=== PATIENT | male | born 1955 | race Caucasian/White ===

== ENCOUNTER 2018-07-14 12:14 | Inpatient (IN) | payer OTHER ==
[~2018-07-14] VITALS: Ht 198.1 cm; Wt 103.8 kg
[2018-07-14] MEDS ORDERED: MORPHINE SULFATE 4 MG/ML SYR/VIAL IV PRN (12:30)
[2018-07-14] MEDS ORDERED: SODIUM CHLORIDE 0.9% 3,000 ML IV ONE (12:30)
[2018-07-14] MEDS ORDERED: ACETAMINOPHEN 325 MG TAB PO PRN (12:30)
[2018-07-14] MEDS ORDERED: VANCOMYCIN PER PHARMACY 1,000 MG IV SCH (12:30)
[2018-07-14] MEDS ORDERED: PIPERACILLIN-TAZOB 3.375GM 100 ML IV SCH (14:00)
[2018-07-14 14:04] LABS: Alanine Aminotransferase 12 U/L (16-61); Albumin 2.9 g/dL (3.4-5.0); Anion Gap 8 (5-15); Aspartate Aminotransferase 6 U/L (15-37); BUN/Creatinine Ratio 12.1; Blood Urea Nitrogen 11 mg/dL (7-18); Calcium 8.8 mg/dL (8.5-10.1); Carbon Dioxide 23 mmol/L (21-32); Chloride 106 mmol/L (98-107); GFR African American 109 mL/min; GFR Non-African American 90 mL/min; Glucose 277 mg/dL (74-106); Sodium 137 mmol/L (136-145)
[2018-07-14 14:09] LABS: Alkaline Phosphatase 115 U/L (45-117); Bilirubin, Total 0.8 mg/dL (0.2-1.0); Total Protein 7.7 g/dL (6.4-8.2)
[2018-07-14 14:35] LABS: Partial Thromboplastin Time 34.3 sec (23.78-33.04); Prothrombin Time 10.7 sec (9.27-12.13)
[2018-07-14 15:10] LABS: Hematocrit 41.6 % (41.0-53.0); Hemoglobin 14.2 g/dL (13.5-17.5); Mean Corpuscular Hemoglobin 35.8 pg (28.0-32.0); Mean Corpuscular Volume 105.3 fL (80.0-100.0); Platelet Count (auto) 198 10^3/uL (140-450); Red Blood Cells 3.95 10^6/uL (4.5-5.90); Red Cell Distribution Width 13.3 % (11.8-14.3); White Blood Cell 14.5 10^3/uL (4.4-10.8)
[2018-07-14 15:37] LABS: Band Neutrophils % (manual) 0; Basophils % (manual) 0 (0.0-2.0); Blast Cells 0; Eosinophils % (manual) 0 (0-7); Metamyelocytes % 0; Myelocytes % 0; Promyelocytes % 0; Reactive Lymphocytes 0
[2018-07-14 15:47] LABS: Amphetamine Screen, Urine NEGATIVE (NEGATIVE); Barbiturate Scree,Urine NEGATIVE (NEGATIVE); Benzodiazephine Screen, Urine NEGATIVE (NEGATIVE); Cannabinoid Screen, Urine NEGATIVE (NEGATIVE); Cocaine Screen, Urine NEGATIVE (NEGATIVE); Opiate Scree,Urine NEGATIVE (NEGATIVE); Phencyclidine Screen, Urine NEGATIVE (NEGATIVE)
[2018-07-14 16:15] LABS: Urine Amorphous Crystal MOD /hpf (None Seen); Urine Bacteria FEW /hpf (None Seen); Urine Blood Negative /uL (Negative); Urine Mucus FEW (None Seen); Urine Specific Gravity 1.025 (1.001-1.035); Urine WBC 3 /hpf (0 - 3)
[2018-07-14] MEDS ORDERED: IPRATROPIUM BROM 0.5 MG/2.5ML INH SOL NEB ONE (16:15)
[2018-07-14] MEDS ORDERED: ALBUTEROL SULF 2.5 MG/0.5ML(0.5%) NEB SOLN NEB ONE (16:15)
[2018-07-14 16:58] LABS: Fibrinogen 672.7 mg/dL (177-375)
[2018-07-14] MEDS ORDERED: NICOTINE 21MG/24 HR TOPICAL PATCH TD ONE (17:15)
[2018-07-14] MEDS ORDERED: ACETAMINOPHEN 500 MG TAB PO PRN (17:15)
[2018-07-14] MEDS ORDERED: DEXTROSE (50%) 50ML SYRG IV PRN ×2 (17:15)
[2018-07-14] MEDS ORDERED: NITROGLYCERIN 0.4 MG SL TAB SL PRN (17:15)
[2018-07-14] MEDS ORDERED: ONDANSETRON HCL 4 MG/2 ML VIAL IV PRN (17:15)
[2018-07-14] MEDS ORDERED: MORPHINE SULF INJ 2 MG/ML SYRINGE 1ML IV PRN (17:15)
[2018-07-14] MEDS ORDERED: VANCOMYCIN PER PHARMACY 0 MG IV SCH (17:15)
[2018-07-14] MEDS ORDERED: HYDROcodone-ACET 5/325MG TAB PO PRN (17:15)
[2018-07-14 17:31] LABS: Lymphocytes % (manual) 3 (10.0-50.0); Monocytes % (manual) 3 (0-12)
[2018-07-14] MEDS: VANCOMYCIN 1GM/250ML 250 ML IV SCH (17:36)
[2018-07-14] MEDS: SODIUM CHLORIDE 0.9% 1,000 ML IV SCH ×2 (18:00→21:39)
[2018-07-14] MEDS: INSULIN NPH Isophane (HUMAN) 1unit/0.01ml Susp(100units/ml) SC SCH (19:00)
[2018-07-14] MEDS: Glucerna Carbsteady SHAKE Vanilla 8oz PO SCH (19:15)
[2018-07-14] MEDS: PIPERACILLIN-TAZOB 3.375GM 100 ML IV SCH (20:00)
[2018-07-14] MEDS: ACCU-CHEK COMFORT CURVE STRIP VI SCH (22:00)
[2018-07-14] MEDS: InsuLIN REG 1unit/0.01ml Soln (100units/ml) SC SCH (22:00)
[2018-07-14] MEDS ORDERED: InsuLIN REG 1unit/0.01ml Soln (100units/ml) SC SCH (22:00)
[2018-07-14] MEDS: DOCUSATE SOD 100 MG CAP PO SCH (22:00)
[2018-07-14] MEDS ORDERED: ACCU-CHEK COMFORT CURVE STRIP VI SCH (22:00)
[2018-07-15] MEDS: VANCOMYCIN 1GM/250ML 250 ML IV SCH ×3 (01:00→16:45)
[2018-07-15] MEDS: PIPERACILLIN-TAZOB 3.375GM 100 ML IV SCH ×4 (02:00→20:08)
[2018-07-15] MEDS: SODIUM CHLORIDE 0.9% 1,000 ML IV SCH ×3 (06:11→19:58)
[2018-07-15] MEDS: InsuLIN REG 1unit/0.01ml Soln (100units/ml) SC SCH ×4 (07:00→21:15)
[2018-07-15] MEDS: INSULIN NPH Isophane (HUMAN) 1unit/0.01ml Susp(100units/ml) SC SCH ×2 (07:00→18:06)
[2018-07-15] MEDS: ACCU-CHEK COMFORT CURVE STRIP VI SCH ×4 (07:00→21:16)
[2018-07-15 07:26] LABS: Basophils # (auto) 0 uL; Eosinophils # (auto) 0 uL; Eosinophils % (auto) 0.3 % (0.0-7.0); Monocytes # (auto) 0.6 uL; Potassium 4.2 mmol/L (3.5-5.1); Red Cell Distribution Width 13.1 % (11.8-14.3)
[2018-07-15 07:34] LABS: Basophils % (auto) 0.3 % (0.0-2.0); Lymphocytes # (auto) 0.7 uL; Mean Corpuscular Hemoglobin 36.3 pg (28.0-32.0); Mean Corpuscular Hgb Conc. 34.2 g/dL (32.0-36.0); Mean Corpuscular Volume 106.3 fL (80.0-100.0); Monocytes % (auto) 6.9 % (0.0-12.0); Neutrophils % (auto) 83.5 % (37.0-80.0); Platelet Count (auto) 169 10^3/uL (140-450); White Blood Cell 8.3 10^3/uL (4.4-10.8)
[2018-07-15 07:37] LABS: Albumin 2.5 g/dL (3.4-5.0); BUN/Creatinine Ratio 13.2; Bilirubin, Total 0.9 mg/dL (0.2-1.0); Calcium 9.2 mg/dL (8.5-10.1); Total Protein 6.7 g/dL (6.4-8.2)
[2018-07-15] MEDS: Glucerna Carbsteady SHAKE Vanilla 8oz PO SCH ×2 (07:39→18:01)
[2018-07-15] MEDS: MULTIPLE VITAMIN TAB PO SCH (09:30)
[2018-07-15] MEDS: QUEtiapine FUMARATE 25 MG TAB PO SCH (09:30)
[2018-07-15] MEDS: DOCUSATE SOD 100 MG CAP PO SCH ×2 (09:30→21:20)
[2018-07-15] MEDS: PANTOPRAZOLE 40 MG/10 ML VIAL IV SCH (09:30)
[2018-07-15] MEDS: NICOTINE 21MG/24 HR TOPICAL PATCH TD SCH (09:30)
[2018-07-15] MEDS: VENLAFAXINE HCL 37.5mg XR cap PO SCH (10:05)
--- NOTE | 2018-07-15 11:14 | NUR ---
WOUND CARE NOTE: Wound care in to see patient per wound care request regarding "Left Diabetic Foot Wound" ER nurse took photograph of patient's wound upon admission for reference. Patient is 62 years old male with admitting diagnosis of Severe Sepsis. Patient is resting in hospital bed in ER bed#10. He's awake,alert and fully oriented. He's in no stated pain at this time. Patient is able to turn and reposition self. His current Tiburcio score is 15. Patient has well healed R BKA stump. Noted his L heel has 6x6.5cm open full thickness ulceration with no measurable depth.Wound bed is 70% black eschar, 30% dusky red and pale pink at wound edges, gomez wound is yellow with hyperkeratotic skin, minimal serous drainage noted, no odor noted. Patient reported that he has had the L heel wound for two months. He states that he's under the care of "[facility]" for his L heel wound. He continued further that he goes to wound clinic every week and his does the wound dressing everyday. Cleansed patient's L heel wound with NS, patted dry with gauze. Took specimen for wound culture and sent to lab for processing per MD order. Applied NS moistened gauze dressing, wrapped with Kerlix and secured with tape. Patient tolerated well. Patient to be seen by podiatry consult. Will defer all wound care dressing recommendation/order to warehouse worker. Patient denies any other wound. RECOMMENDATION:Follow warehouse worker dressing change order, Dietary consult due to presence of wound,redistribute pressure points with pillows, elevate affected extremity on pillows, continue monitoring by wound care while patient is hospitalized. Addendum: 07/15/18 at 1302 by Monica Pearce RN Amended: Links added.
[2018-07-15] MEDS: DAKINS QUARTER STR 0.125% (NaHypochlorite) 473 ML TOPICAL SOL TOP SCH (12:58)
[2018-07-16] MEDS: VANCOMYCIN 1GM/250ML 250 ML IV SCH ×3 (00:30→17:16)
[2018-07-16] MEDS: PIPERACILLIN-TAZOB 3.375GM 100 ML IV SCH ×4 (02:14→20:19)
[2018-07-16] MEDS: SODIUM CHLORIDE 0.9% 1,000 ML IV SCH ×3 (02:40→16:03)
[2018-07-16 05:41] LABS: Basophils # (auto) 0 uL; Basophils % (auto) 0.2 % (0.0-2.0); Eosinophils # (auto) 0.1 uL; Eosinophils % (auto) 1.2 % (0.0-7.0); Hemoglobin 11.3 g/dL (13.5-17.5); Lymphocytes # (auto) 0.8 uL; Lymphocytes % (auto) 14.6 % (10.0-50.0); Mean Corpuscular Hemoglobin 36.2 pg (28.0-32.0); Mean Corpuscular Hgb Conc. 34.3 g/dL (32.0-36.0); Mean Corpuscular Volume 105.4 fL (80.0-100.0); Monocytes # (auto) 0.4 uL; Monocytes % (auto) 7.8 % (0.0-12.0); Neutrophils % (auto) 76.2 % (37.0-80.0); Nucleated Red Blood Cells % 0.1 %; Platelet Count (auto) 150 10^3/uL (140-450); Red Blood Cells 3.13 10^6/uL (4.5-5.90); Red Cell Distribution Width 13.2 % (11.8-14.3); White Blood Cell 5.3 10^3/uL (4.4-10.8)
[2018-07-16 06:01] LABS: Partial Thromboplastin Time 37.6 sec (23.78-33.04); Prothrombin Time 10.7 sec (9.27-12.13)
[2018-07-16 06:06] LABS: Calcium 8.8 mg/dL (8.5-10.1); Magnesium 2.1 mg/dL (1.6-2.6); Potassium 3.3 mmol/L (3.5-5.1)
[2018-07-16] MEDS: InsuLIN REG 1unit/0.01ml Soln (100units/ml) SC SCH ×4 (07:00→22:25)
[2018-07-16] MEDS: INSULIN NPH Isophane (HUMAN) 1unit/0.01ml Susp(100units/ml) SC SCH ×2 (07:00→19:43)
[2018-07-16] MEDS: ACCU-CHEK COMFORT CURVE STRIP VI SCH ×4 (07:23→22:25)
[2018-07-16] MEDS: Glucerna Carbsteady SHAKE Vanilla 8oz PO SCH ×2 (08:36→19:05)
[2018-07-16] MEDS: DOCUSATE SOD 100 MG CAP PO SCH ×2 (10:00→22:00)
[2018-07-16] MEDS: VENLAFAXINE HCL 37.5mg XR cap PO SCH (10:26)
[2018-07-16] MEDS: NICOTINE 21MG/24 HR TOPICAL PATCH TD SCH (10:26)
[2018-07-16] MEDS: MULTIPLE VITAMIN TAB PO SCH (10:26)
[2018-07-16] MEDS: PANTOPRAZOLE 40 MG/10 ML VIAL IV SCH (10:26)
[2018-07-16] MEDS: QUEtiapine FUMARATE 25 MG TAB PO SCH (10:26)
[2018-07-16] MEDS: DAKINS QUARTER STR 0.125% (NaHypochlorite) 473 ML TOPICAL SOL TOP SCH (10:45)
[2018-07-16] MEDS: GABAPENTIN 300 MG CAP PO SCH ×2 (14:05→22:25)
--- NOTE | 2018-07-16 14:32 | NUR ---
NUTRITION CONSULT/ASSESSMENT NOTES Please refer to link notes of nutrition screen form filed under the intervention section of the plan of care for further details. Est. Needs: 2150 kcal to 2700 kcal (20-25 kcal/kgBW), 109 gms to 131 gms pro (1.0-1.2 gms/kgBW). Will continue to monitor pertinent labs and reassess nutrient need prn Thank you for this consult. Addendum: 07/16/18 at [address] Amended: Links added.
[2018-07-16] MEDS ORDERED: POTASSIUM CHL 20 Meq TABLET PO ONE (17:00)
[2018-07-16] MEDS ORDERED: LIDOCAINE 1% (LOCAL ANESTH.) PF 5ml SDV ID ONE (17:15)
--- NOTE | 2018-07-16 17:17 | NUR ---
PICC line placement Patient/Patient significant other educated on need for PICC line placement. All risks and benefits explained and all questions and concerns addressed prior to procedure. Noted past medical history and allergies with no contraindications. INR and Plt counts within acceptable range. 4 fr PICC line inserted via right brachial vein using [employer]'s Site Rite US and Tip Location System. Sterile technique with maximum barrier precautions utilized. Blood return obtained from the lumen and flushed easily with NS using proper technique. PICC secured with Stat-lock; biodisc and occlusive dressing applied. Stat portable chest x-ray obtained for PICC tip placement. *Baseline Arm Circumference 26cm. Internal length 37cm. External length 5cm. PICC lot # [id number]. Note: Accessed easily, but when attempted to be advanced all the way pressure kept pushing the PICC back and no blood return was noted. It was pulled back until blood return was present.
--- NOTE | 2018-07-16 17:39 | NUR ---
PICC LINE Radiologist called to say that the PICC line was malpositioned in the neck. PICC line was pulled out at this time and will be re-attempted tomorrow.
--- NOTE | 2018-07-16 18:20 | NUR ---
Telemetry admit from ER RAMIRO MOTLEY admitted to Telemetry unit after SBAR received. Patient oriented to Shefali Lerma, primary RN, unit, room, bed, and unit policies regarding patient care and visiting hours. Patient now on continuous telemetry monitoring, tele box # 2 and telemetry reading on arrival to unit is sinus rhythm at 84. Patient weighed by bedscale and encouraged to call if they need something. All questions and concerns addressed, patient verbalized understanding. RT foot dressing clean and dry, rizvi draining to gravity. Pt denies pain at this time, will continue to monitor pt.
[2018-07-16] MEDS ORDERED: ASCO500T11 PO (19:12)
[2018-07-16] MEDS ORDERED: MULTCAP45 PO (19:12)
[2018-07-16] MEDS ORDERED: DICL500C76 PO (19:12)
[2018-07-16] MEDS ORDERED: ALBU0.084 NEB (19:12)
[2018-07-16] MEDS ORDERED: INSREG3 SC (19:12)
[2018-07-16] MEDS ORDERED: GABA-339 PO (19:12)
[2018-07-16] MEDS ORDERED: VENL75CA78 PO (19:12)
[2018-07-16] MEDS ORDERED: LISI10TA6 PO (19:12)
[2018-07-16] MEDS ORDERED: METH-824 PO (19:12)
[2018-07-16] MEDS ORDERED: INSUINJ2 SC (19:12)
[2018-07-16] MEDS ORDERED: QUET50TA PO (19:12)
[2018-07-16 22:00] VITALS: BP 117/58
[2018-07-16] MEDS: SODIUM CHLOR 0.9% PF (SALINE LOCK) 10ML VIAL/SYR IV SCH (22:00)
[2018-07-17] MEDS: SODIUM CHLORIDE 0.9% 1,000 ML IV SCH ×3 (00:49→13:54)
[2018-07-17] MEDS: VANCOMYCIN 1GM/250ML 250 ML IV SCH ×3 (00:49→17:33)
[2018-07-17] MEDS: PIPERACILLIN-TAZOB 3.375GM 100 ML IV SCH ×2 (02:30→08:21)
[2018-07-17 05:02] VITALS: BP 103/60
[2018-07-17] MEDS: GABAPENTIN 300 MG CAP PO SCH ×3 (06:32→21:31)
[2018-07-17 06:39] LABS: Calcium 8.6 mg/dL (8.5-10.1); Potassium 3.7 mmol/L (3.5-5.1)
[2018-07-17 06:41] LABS: BUN/Creatinine Ratio 8.1
[2018-07-17] MEDS: ACCU-CHEK COMFORT CURVE STRIP VI SCH ×4 (06:41→21:31)
[2018-07-17] MEDS: INSULIN NPH Isophane (HUMAN) 1unit/0.01ml Susp(100units/ml) SC SCH ×2 (06:41→17:35)
[2018-07-17] MEDS: InsuLIN REG 1unit/0.01ml Soln (100units/ml) SC SCH ×4 (06:42→21:36)
[2018-07-17] MEDS: Glucerna Carbsteady SHAKE Vanilla 8oz PO SCH ×2 (08:00→18:00)
[2018-07-17 09:00] VITALS: BP 125/58
[2018-07-17] MEDS: PANTOPRAZOLE 40 MG/10 ML VIAL IV SCH (09:28)
[2018-07-17] MEDS: MULTIPLE VITAMIN TAB PO SCH (09:29)
[2018-07-17] MEDS: DOCUSATE SOD 100 MG CAP PO SCH ×2 (09:29→21:33)
[2018-07-17] MEDS: QUEtiapine FUMARATE 25 MG TAB PO SCH (09:29)
[2018-07-17] MEDS: VENLAFAXINE HCL 37.5mg XR cap PO SCH (09:30)
[2018-07-17] MEDS: NICOTINE 21MG/24 HR TOPICAL PATCH TD SCH (09:31)
[2018-07-17] MEDS: SODIUM CHLOR 0.9% PF (SALINE LOCK) 10ML VIAL/SYR IV SCH ×3 (10:00→21:30)
[2018-07-17] MEDS: DAKINS QUARTER STR 0.125% (NaHypochlorite) 473 ML TOPICAL SOL TOP SCH (11:39)
--- NOTE | 2018-07-17 11:45 | NUR ---
PT SEEN BY DR. CASILLAS HE SAID HE WILL DISCHARGE THE PT HOME TOMORROW TO CONTINUE IV ANTIBIOTIC ONCE PICC LINE IS PLACED.
[2018-07-17 13:00] VITALS: BP 101/60
--- NOTE | 2018-07-17 14:28 | NUR ---
Mamta at [facility] (ph # [phone]) working on getting home abx ordered. I informed Mamta pt will probably go home tomorrow
--- NOTE | 2018-07-17 15:40 | NUR ---
PICC line placement Patient educated on need for PICC line placement. All risks and benefits explained and all questions and concerns addressed prior to procedure. Noted past medical history and allergies with no contraindications. INR and Plt counts within acceptable range. 4 fr PICC line inserted via Right Brachial vein using [employer]'s Site Rite US and Tip Location System. Sterile technique with maximum barrier precautions utilized. Blood return obtained from the single lumen and flushed easily with NS using proper technique. PICC secured with Stat-lock; biodisc and occlusive dressing applied. Stat portable chest x-ray obtained for PICC tip placement. *Baseline Arm Circumference 33 cm. *Internal Length 38 cm. *External length 2 cm. *PICC lot #[id number]. Note: PICC Line inserted by Velia Morfin RN. This RN assisting with documentation. Original internal lnegth of 44 cm cut short, no blood return with original length. EBL 20 mls. Tolerated well during procedure.
[2018-07-17] MEDS ORDERED: LIDOCAINE 1% (LOCAL ANESTH.) PF 5ml SDV ID ONE (15:45)
--- NOTE | 2018-07-17 16:05 | NUR ---
PT TRANSFERRED TO ROOM 239 PT STATED [facility] PERSON CALLED HIM STATING THAT HE CAME BACK POSITIVE FOR MRSA WOUND, CHARGE NURSE KASIE INFORMED AND SAID TO TRANSFER THE PT TO ROOM 239 ONCE CLEANED.
[2018-07-17 16:53] VITALS: BP 108/60
--- NOTE | 2018-07-17 17:37 | NUR ---
PICC LINE PER RADIOLOGY REPORT PICC LINE IS COURSING UP THE RIGHT SUPRACLAVICULAR NECK, RECOMMEND READJUSTMENT. CONSULTED WITH PICC LINE RN KEYSHA, STATES BEST PRACTICE IS TO REMOVE PICC LINE AT THIS TIME. STATES SHE WILL ATTEMPT PLACEMENT TOMORROW. PRIMARY RN NOTIFIED.
--- NOTE | 2018-07-17 19:35 | NUR ---
OPENING SHIFT NOTE RECEIVED REPORT FROM DAYSHIFT RN. PATIENT RESTING COMFORTABLY IN BED WITH EYES CLOSED. PATIENT A/O X4. NO S/S OF DISTRESS OR SOB. CONTACT ISOLATION PRECAUTIONS IN PLACE. UPDATED PATIENT ON POC, VERBALIZED UNDERSTANDING. BED LOCKED IN LOW POSITION, CALL LIGHT WITHIN REACH. WILL CONTINUE TO MONITOR PATIENT Q1HR AND PRN.
[2018-07-17 22:00] VITALS: BP 119/65
[2018-07-18] MEDS: SODIUM CHLORIDE 0.9% 1,000 ML IV SCH ×2 (01:12→14:25)
[2018-07-18] MEDS: VANCOMYCIN 1GM/250ML 250 ML IV SCH ×2 (01:12→09:41)
[2018-07-18 05:00] VITALS: BP 117/58
[2018-07-18] MEDS: GABAPENTIN 300 MG CAP PO SCH ×2 (06:20→14:00)
[2018-07-18] MEDS: ACCU-CHEK COMFORT CURVE STRIP VI SCH ×2 (06:21→11:39)
[2018-07-18] MEDS: INSULIN NPH Isophane (HUMAN) 1unit/0.01ml Susp(100units/ml) SC SCH (06:24)
[2018-07-18] MEDS: InsuLIN REG 1unit/0.01ml Soln (100units/ml) SC SCH ×2 (06:24→11:40)
[2018-07-18] MEDS: Glucerna Carbsteady SHAKE Vanilla 8oz PO SCH (08:00)
[2018-07-18 09:00] VITALS: BP 110/64
[2018-07-18] MEDS ORDERED: cefTRIAXone 1GM/50ML D5W 50 ML IV SCH (09:00)
--- NOTE | 2018-07-18 09:25 | NUR ---
PT SEEN BY DR. CASILLAS PER DR. CASILLAS PT CAN GO HOME ONCE PICC LINE INSERTION IS DONE.
[2018-07-18] MEDS: PANTOPRAZOLE 40 MG/10 ML VIAL IV SCH (09:41)
[2018-07-18] MEDS: MULTIPLE VITAMIN TAB PO SCH (09:41)
[2018-07-18] MEDS: QUEtiapine FUMARATE 25 MG TAB PO SCH (09:41)
[2018-07-18] MEDS: VENLAFAXINE HCL 37.5mg XR cap PO SCH (09:41)
[2018-07-18] MEDS: SODIUM CHLOR 0.9% PF (SALINE LOCK) 10ML VIAL/SYR IV SCH ×2 (09:42→09:43)
[2018-07-18] MEDS: NICOTINE 21MG/24 HR TOPICAL PATCH TD SCH (09:42)
[2018-07-18] MEDS: DAKINS QUARTER STR 0.125% (NaHypochlorite) 473 ML TOPICAL SOL TOP SCH (09:42)
[2018-07-18] MEDS: DOCUSATE SOD 100 MG CAP PO SCH (10:00)
[2018-07-18] MEDS ORDERED: ERTAPENEM SOD INJ 1 GM in SODIUM CHL 0.9% 50 ML IV SCH (10:00)
--- NOTE | 2018-07-18 10:20 | NUR ---
SPOKE WITH LONNY QUALITY IMPROVEMENT MANAGER, MADE AWARE PT HAS A DISCHARGE ORDER WAITING FOR PICC LINE NURSE TO INSERT THE PICC LINE. PER LONNY SHE WILL CALL [facility] AND WILL CALL ME BACK FOR UPDATE.
[2018-07-18 10:24] VITALS: BP 110/64
--- NOTE | 2018-07-18 11:14 | NUR ---
PICC line placement Patient educated on need for PICC line placement. All risks and benefits explained and all questions and concerns addressed prior to procedure. Noted past medical history and allergies with no contraindications. INR and Plt counts within acceptable range. 4 fr PICC line inserted via left basilic vein using [employer]'s Site Rite US and Tip Location System. Sterile technique with maximum barrier precautions utilized. Blood return obtained from single lumen and flushed easily with NS using proper technique. PICC secured with Stat-lock; biodisc and occlusive dressing applied. Stat portable chest x-ray obtained for PICC tip placement. *Baseline Arm Circumference 30 cm. *Internal Length 54 cm. *External Length 0 cm. *PICC lot #[id number].
--- NOTE | 2018-07-18 12:21 | NUR ---
Okay to use PICC line X-ray completed. Primary RN notified.
--- NOTE | 2018-07-18 12:51 | NUR ---
SPOKE WITH LONNY MIRROR MACHINE FEEDER MADE AWARE PICC LINE WAS INSERTED AND OKAY TO USE, PER LONNY SHE WILL CALL ME BACK IF PT IS OKAY TO GO.
--- NOTE | 2018-07-18 12:58 | NUR ---
[facility] ARRANGED FOR PT TO RECEIVE 1ST HOME DOSE TOMORROW. [facility] (PH [phone]) WILL DELIVER MEDS BETWEEN THE HRS OF 1800 2000 HRS, PER LAUREN, PT AWARE OF NEED TO BE HOME AT THAT TIME FOR MED DELIVERY. LAUREN ALSO VERIFIED PT'S PH #. [facility] ([phone]) AND [facility] ([phone]) NOTIFIED OF PT'S D/C
[2018-07-18 13:00] VITALS: BP 106/52
--- NOTE | 2018-07-18 13:45 | NUR ---
WOUND PHOTO TAKEN ON LEFT FOOT, WOUND DRESSING DONE.
--- NOTE | 2018-07-18 14:11 | NUR ---
DR. CASILLAS NOTIFIED PT CAME BACK POSITIVE FOR MRSA IN THE WOUND.
--- NOTE | 2018-07-18 14:51 | NUR ---
LONNY CABRERA MADE AWARE PT CAME BACK POSITIVE FOR MRSA IN THE WOUND AND STILL WAITING FOR DR. CASILLAS'S CALL BACK.
--- NOTE | 2018-07-18 14:56 | NUR ---
PAGED DR. CASILLAS FOLLOW UP PAGED FOR DR. CASILLAS, PT CAME BACK POSITIVE FOR MRSA IN THE WOUND, WAITING FOR CALL BACK.
--- NOTE | 2018-07-18 14:57 | NUR ---
WAITING FOR DR CASILLAS TO CALL STEPHANIE BACK CONCERNING ABX COVERAGE FOR + MRSA CULTURE
--- NOTE | 2018-07-18 15:30 | NUR ---
SPOKE WITH DR. CASILLAS PER DR. CASILLAS DOXYCYCLINE WILL COVER THE MRSA IN THE WOUND, HE SAID PT CAN GO HOME.
--- NOTE | 2018-07-18 15:32 | NUR ---
PT OKAY TO GO HOME WITH PO ABX PRESCRIPTION FOR + MRSA TX. STEPHANIE INFORMED THAT [facility] DOES NOT TRANSPORT HOME (THEY WILL BUT PT MAY HAVE A HIGH DEDUCTIBLE) AND THAT PT WILL HAVE TO ARRANGE OWN TRANSPORTATION PER [facility].
--- NOTE | 2018-07-18 16:00 | NUR ---
Discharge instructions given as ordered. Encourage to follow up with DR. TRISTAN BEAL IN 1 WEEK, [facility] WILL CALL PT FOR HIS PPOINTMENT. All questions and concerns addressed. Patient verbalized understanding. Medication reconciliation form completed and copy given to patient. IV removed with catheter intact, pressure dressing applied. Patient taken to vehicle via wheelchair with all personal belongings, accompanied by staff and family member. No distress noted at time of departure.
--- NOTE | 2018-07-18 16:02 | NUR ---
TRANSPORT: PER STEPH[facility]IE, HAS ARRANGED FOR TRANSPORT AND [facility] IS WAITING FOR PT AT HOSPITAL AT THIS TIME
== END 2018-07-18 16:00 | disposition home or self-care (01) | DRG 871 ==
LOC: EDBD 12:14 → ER 12:14 → OVERFLOW 17:04 → TELE-EAST 07-16 18:00
PROVIDERS: ADMIT Nurse Practitioner Acute Care; ATTEND Internal Medicine Geriatric Medicine
PROC: 02HV33Z Insertion of Infusion Device into Superior Vena Cava, Percutaneous Approach (ICD-10-PCS; principal; 2018-07-17)
DX: A41.9 Sepsis, unspecified organism (principal); J18.9 Pneumonia, unspecified organism; C34.90 Malignant neoplasm of unspecified part of unspecified bronchus or lung; E44.0 Moderate protein-calorie malnutrition; N39.0 Urinary tract infection, site not specified; L97.429 Non-pressure chronic ulcer of left heel and midfoot with unspecified severity; M86.8X7 Other osteomyelitis, ankle and foot; R65.20 Severe sepsis without septic shock; E11.65 Type 2 diabetes mellitus with hyperglycemia; I10 Essential (primary) hypertension; E11.51 Type 2 diabetes mellitus with diabetic peripheral angiopathy without gangrene; G89.29 Other chronic pain; M54.5 Low back pain; F32.9 Major depressive disorder, single episode, unspecified; E11.621 Type 2 diabetes mellitus with foot ulcer; L97.529 Non-pressure chronic ulcer of other part of left foot with unspecified severity; E11.69 Type 2 diabetes mellitus with other specified complication; E11.42 Type 2 diabetes mellitus with diabetic polyneuropathy; Z68.26 Body mass index [BMI] 26.0-26.9, adult; Z88.8 Allergy status to other drugs, medicaments and biological substances; F17.210 Nicotine dependence, cigarettes, uncomplicated; Z79.4 Long term (current) use of insulin; Z89.511 Acquired absence of right leg below knee; Z92.3 Personal history of irradiation; Z79.899 Other long term (current) drug therapy
CPT/HCPCS: 36415; 36569; 36600; 70450; 71045; 73620; 73700; 73721; 80048; 80053; 80061; 80202; 80307; 81001; 82553; 82805; 82962; 83036; 83605; 83735; 83880; 84443; 84484; 85007; 85025; 85027; 85379; 85384; 85610; 85652; 85730; 86141; 86850; 86900; 86901; 87040; 87077; 87081; 87086; 87088; 87186; 87205; 87804; 93005; 93925; 94640; 96365; 96366; C9113; G0378; J0696; J1335; J1815; J2405; J2543

== ENCOUNTER 2018-12-13 19:09 | Inpatient (IN) | payer OTHER ==
[~2018-12-13] VITALS: Ht 198.1 cm; Wt 105.7 kg
[~2018-12-13 19:09] MED LIST: ALBU0.084 NEB; ASCO500T11 PO; DICL500C76 PO; GABA-339 PO; INSREG3 SC; INSUINJ2 SC; LISI10TA6 PO; METH-824 PO; MULTCAP45 PO; QUET50TA PO; VENL75CA78 PO
[2018-12-13] MEDS ORDERED: cefTRIAXone SOD 1,000 MG VL IM ONE (20:30)
[2018-12-13] MEDS ORDERED: SODIUM CHLORIDE 0.9% 1,000 ML IV ONE (20:30)
[2018-12-13] MEDS ORDERED: LEVOFLOXACIN 750MG 150 ML IV ONE (20:30)
[2018-12-13 21:26] LABS: Basophils # (auto) 0 uL; Eosinophils # (auto) 0 uL; Lymphocytes # (auto) 0.5 uL; Mean Corpuscular Hgb Conc. 34.1 g/dL (32.0-36.0)
[2018-12-13 21:29] LABS: Basophils % (auto) 0.3 % (0.0-2.0); Eosinophils % (auto) 0.5 % (0.0-7.0); Hematocrit 36.2 % (41.0-53.0); Hemoglobin 12.3 g/dL (13.5-17.5); Lymphocytes % (auto) 5.9 % (10.0-50.0); Mean Corpuscular Volume 102.6 fL (80.0-100.0); Monocytes # (auto) 0.6 uL; Monocytes % (auto) 7.1 % (0.0-12.0); Neutrophils # (auto) 6.7 uL; Neutrophils % (auto) 86.2 % (37.0-80.0); Platelet Count (auto) 217 10^3/uL (140-450); Red Blood Cells 3.53 10^6/uL (4.5-5.90); White Blood Cell 7.8 10^3/uL (4.4-10.8)
[2018-12-13 21:51] LABS: Alanine Aminotransferase 15 U/L (16-61); Albumin 2.4 g/dL (3.4-5.0); Anion Gap 8 (5-15); Aspartate Aminotransferase 13 U/L (15-37); BUN/Creatinine Ratio 16.3; Blood Urea Nitrogen 13 mg/dL (7-18); Calcium 9.1 mg/dL (8.5-10.1); Carbon Dioxide 27 mmol/L (21-32); Chloride 103 mmol/L (98-107); GFR African American 126 mL/min; GFR Non-African American 104 mL/min; Glucose 121 mg/dL (74-106); Potassium 3.6 mmol/L (3.5-5.1); Sodium 138 mmol/L (136-145)
[2018-12-13 21:55] LABS: Alkaline Phosphatase 80 U/L (45-117); Bilirubin, Total 0.3 mg/dL (0.2-1.0)
[2018-12-14] MEDS ORDERED: cefTRIAXone 1GM/50ML D5W 50 ML IV ONE
[2018-12-14] MEDS ORDERED: ACETAMINOPHEN 500 MG TAB PO PRN (02:45)
[2018-12-14] MEDS ORDERED: ONDANSETRON HCL 4 MG/2 ML VIAL IV PRN (02:45)
[2018-12-14] MEDS ORDERED: TEMAZEPAM 15 MG CAP PO PRN (02:45)
[2018-12-14] MEDS ORDERED: ACETAMINOPHEN 325 MG TAB PO PRN (02:45)
[2018-12-14] MEDS ORDERED: DEXTROSE (50%) 50ML SYRG IV PRN (05:00)
[2018-12-14 06:01] LABS: Basophils # (auto) 0.1 uL; Basophils % (auto) 0.9 % (0.0-2.0); Eosinophils # (auto) 0.1 uL; Eosinophils % (auto) 0.9 % (0.0-7.0); Hematocrit 36.3 % (41.0-53.0); Hemoglobin 12.3 g/dL (13.5-17.5); Lymphocytes # (auto) 0.8 uL; Lymphocytes % (auto) 11.6 % (10.0-50.0); Mean Corpuscular Hemoglobin 34.9 pg (28.0-32.0); Mean Corpuscular Hgb Conc. 33.9 g/dL (32.0-36.0); Mean Corpuscular Volume 102.9 fL (80.0-100.0); Monocytes # (auto) 0.6 uL; Monocytes % (auto) 8.1 % (0.0-12.0); Neutrophils # (auto) 5.7 uL; Neutrophils % (auto) 78.5 % (37.0-80.0); Platelet Count (auto) 229 10^3/uL (140-450); Red Blood Cells 3.53 10^6/uL (4.5-5.90); Red Cell Distribution Width 13.1 % (11.8-14.3); White Blood Cell 7.3 10^3/uL (4.4-10.8)
[2018-12-14] MEDS: ALBUTEROL SULF 2.5 MG/0.5ML(0.5%) NEB SOLN NEB SCH ×3 (06:11→19:04)
[2018-12-14] MEDS: IPRATROPIUM BROM 0.5 MG/2.5ML INH SOL NEB SCH ×3 (06:12→19:04)
[2018-12-14 06:16] VITALS: BP 120/64
[2018-12-14 06:20] LABS: Calcium 9.2 mg/dL (8.5-10.1); Potassium 3.6 mmol/L (3.5-5.1)
[2018-12-14 06:23] LABS: BUN/Creatinine Ratio 14.9
[2018-12-14] MEDS: InsuLIN REG 1unit/0.01ml Soln (100units/ml) SC SCH ×4 (08:06→22:16)
[2018-12-14] MEDS: ACCU-CHEK COMFORT CURVE STRIP VI SCH ×4 (08:06→22:17)
[2018-12-14] MEDS: LISINOPRIL 10 MG TAB PO SCH (08:16)
[2018-12-14] MEDS: VENLAFAXINE HCL 37.5MG TABLET PO SCH ×2 (08:16→22:16)
[2018-12-14] MEDS: QUEtiapine FUMARATE 25 MG TAB PO SCH ×2 (08:16→22:16)
[2018-12-14] MEDS: PANTOPRAZOLE 40 MG TAB PO SCH (08:16)
[2018-12-14] MEDS: guaiFENesin-DM 100/10mg/5ml SYR PO PRN ×2 (08:31→22:19)
--- NOTE | 2018-12-14 10:00 | NUR ---
PT ADMITTED TO FLOOR VIA GURNEY AND STAFF FROM [facility]. PT REPORTS NO PAIN AT THIS TIME. VITALS: 98.4, 129/78, HR 107, RR 22, 02 95. PT REPORTS HE HAS A MORPHINE PUMP IN ABDOMEN FOR BACK PAIN. PT HAS A RIGHT BKA AND A PRESSURE ULCER ON LEFT HEEL. PHOTOS TAKEN AND NEW OPTIFOAM APPLIED TO FOOT. URINE SENT FOR URINALYSIS. PT ORIENTED TO UNIT AND CALL LIGHT. BED IN LOWEST LOCKED POSITION, SIDE RAILS UP X 2, WILL CONTINUE TO MONITOR.
[2018-12-14] MEDS ORDERED: INSUINJ2 SC ×2 (10:13)
[2018-12-14] MEDS ORDERED: QUET50TA PO (10:13)
[2018-12-14] MEDS ORDERED: INSREG3 SC (10:13)
[2018-12-14] MEDS ORDERED: CIPR-173 PO (10:13)
[2018-12-14] MEDS ORDERED: [UNRECOGNIZED DRUG - CODE] IV (10:13)
[2018-12-14] MEDS ORDERED: MORP60TA25 IL (10:15)
[2018-12-14 10:29] LABS: Urine Bacteria FEW /hpf (None Seen); Urine Blood 1+ /uL (Negative); Urine Mucus FEW (None Seen); Urine Specific Gravity 1.022 (1.001-1.035); Urine WBC 238 /hpf (0 - 3); Urine WBC Clumps PRESENT /hpf (None Seen)
[2018-12-14 11:00] VITALS: BP 129/78
--- NOTE | 2018-12-14 13:00 | NUR ---
WOUND CARE NOTE: IN TO SEE PATIENT AT THIS TIME PER WOUND CARE CONSULT REQUEST. PATIENT RECENTLY ADMITTED TO [facility] WITH DIAGNOSIS OF RIGHT PLEURAL EFFUSION. CURRENT MIQUEL SCORE IS 16. PATIENT CAN SELF TURN/REPOSITION SELF. HE IS DIABETIC, NOTED TO HAVE WOUND TO LEFT HEEL UPON ADMIT. WOUND PHOTO TAKEN AT THAT TIME BY BEDSIDE NURSE FOR REFERENCE, WOUND CONSULT ORDERED. PATIENT IS NOTED TO HAVE A 5 X 3 CM OPEN DFU/ VS UNSTAGEABLE PRESSURE ULCER TO THE LEFT HEEL. WOUND IS NECROTIC, WITH ESCHAR AND SLOUGH NOTED IN WOUND BED. HE HAS BEEN RECEIVING WOUND CARE FOR APPROXIMATELY 6 MONTHS ON THIS WOUND AT HIS DOCTOR'S OFFICE AT [facility]. PATIENT STATES THAT WOUND STARTED WITH A BLISTER. PATIENT IS NOTED TO HAVE A RIGHT BKA STUMP WITH WELL HEALED SURGICAL SCAR. CULTURED LEFT HEEL WOUND PER MD ORDER AT THIS TIME, SENT OFF TO LAB FOR PROCESSING. APPLIED THERAHONEY, OPTIFOAM DRESSING, WRAPPING FOOT/HEEL WITH KERLIX, SECURING WITH TAPE/STOCKINETTE. SKIN/WOUND CARE PLAN IMPLEMENTED. RECOMMEND: EOD/PRN DRESSING CHANGE TO WOUND ON LEFT HEEL, ELEVATION OF HEEL UP ONTO PILLOW FOR OFFLOADING, SKIN/WOUND CARE PLAN, DIETARY CONSULT, CONTINUED MONITORING BY WOUND CARE TEAM. PATIENT WILL GO BACK TO [facility] FOR WOUND CARE POST DISCHARGE. Addendum: 12/14/18 at 1823 by Yulia Orellana RN Amended: Links added.
[2018-12-14 17:24] VITALS: BP 17/62
--- NOTE | 2018-12-14 19:30 | NUR ---
Opening Shift Note Assumed care of patient, awake and alert. Right BKA. Able to turn himself. Has aggressive cough. Unable to get anything up at this time. Offered robitussin. He stated" maybe later." IV to L FA patent. No S/S of distress/SOB or pain. Instructed on POC and to call for assist PRN, will continue to monitor for changes Q1hr and PRN.
[2018-12-14] MEDS ORDERED: LEVOFLOXACIN 500MG 100 ML IV SCH (21:00)
[2018-12-14] MEDS: LEVOFLOXACIN 750MG 150 ML IV SCH (21:07)
[2018-12-14] MEDS: HYDROcodone-ACET 5/325MG TAB PO PRN (21:08)
[2018-12-14 22:00] VITALS: BP 105/41
--- NOTE | 2018-12-14 22:00 | NUR ---
Complaining of right shoulder pain. States " the doctor says its related to the lungs. Has a pain pump implanted in his abdomen but states it was turned down earlier in the year, thinks it might be out soon. Offered norco per orders. Continues to have aggressive cough. Will medicate per orders.
[2018-12-15] MEDS: IPRATROPIUM BROM 0.5 MG/2.5ML INH SOL NEB SCH ×4 (01:09→19:08)
[2018-12-15] MEDS: ALBUTEROL SULF 2.5 MG/0.5ML(0.5%) NEB SOLN NEB SCH ×4 (01:09→19:08)
[2018-12-15 05:00] VITALS: BP 114/65
[2018-12-15] MEDS: InsuLIN REG 1unit/0.01ml Soln (100units/ml) SC SCH ×4 (06:13→22:31)
[2018-12-15] MEDS: PANTOPRAZOLE 40 MG TAB PO SCH ×2 (06:14→07:23)
[2018-12-15] MEDS: ACCU-CHEK COMFORT CURVE STRIP VI SCH ×4 (06:14→22:29)
[2018-12-15] MEDS: HYDROcodone-ACET 5/325MG TAB PO PRN ×3 (06:18→22:28)
--- NOTE | 2018-12-15 07:00 | NUR ---
Patient coughing so much was unable to take his protonix or norco. Wasting both. Endorsed care to [facility]. Offered sadieitussin and he declined at this time.
--- NOTE | 2018-12-15 07:56 | NUR ---
PT RESTING IN BED AND REPORTS 8/10 PAIN IN SHOULDERS. 75 MLS YELLOW ORANGE CLOUDY URINE NOTED IN [place]. SIDE RAILS UP X 2, BED IN LOWEST LOCKED POSITION, CALL LIGHT IN REACH, WILL GIVE PAIN MEDICATION AND CONTINUE TO MONITOR.
[2018-12-15 09:00] VITALS: BP 127/65
[2018-12-15] MEDS ORDERED: cefTRIAXone 1GM/50ML D5W 50 ML IV SCH (09:00)
[2018-12-15 09:13] LABS: Basophils # (auto) 0 uL; Basophils % (auto) 0.5 % (0.0-2.0); Eosinophils # (auto) 0 uL; Eosinophils % (auto) 0.6 % (0.0-7.0); Monocytes # (auto) 0.5 uL; Neutrophils # (auto) 5.5 uL
[2018-12-15 09:16] LABS: Hematocrit 36.4 % (41.0-53.0); Hemoglobin 12.4 g/dL (13.5-17.5); Lymphocytes # (auto) 0.7 uL; Lymphocytes % (auto) 9.9 % (10.0-50.0); Mean Corpuscular Hemoglobin 35.1 pg (28.0-32.0); Mean Corpuscular Hgb Conc. 34.1 g/dL (32.0-36.0); Mean Corpuscular Volume 102.9 fL (80.0-100.0); Monocytes % (auto) 7.4 % (0.0-12.0); Neutrophils % (auto) 81.6 % (37.0-80.0); Platelet Count (auto) 249 10^3/uL (140-450); Red Blood Cells 3.53 10^6/uL (4.5-5.90); Red Cell Distribution Width 13.1 % (11.8-14.3); White Blood Cell 6.8 10^3/uL (4.4-10.8)
[2018-12-15 09:27] LABS: INR 1.08 (0.9-1.15); Partial Thromboplastin Time 33.6 sec (23.64-32.05)
[2018-12-15 09:33] LABS: BUN/Creatinine Ratio 13.6; Calcium 9.1 mg/dL (8.5-10.1); Magnesium 2.5 mg/dL (1.6-2.6); Potassium 3.8 mmol/L (3.5-5.1)
--- NOTE | 2018-12-15 10:27 | NUR ---
CALLED RADIOLOGY. RADIOLOGY CONFIRMS PATIENT WILL HAVE THORACENTESIS AND REQUESTS CONSENT FORMS TO BE SIGNED AND SUPPLIES FOR PROCEDURE AT BEDSIDE. CALLED TO NOTIFY HER PATIENT IS TO HAVE THORACENTESIS TODAY. PT PREVIOUSLY REPORTED PT IS A LITTLE CONFUSED AT TIMES. ASKED TO COME AND SIGN CONSENTS. REPORTS SHE WILL BE HERE IN 2 HRS. PT NOTIFIED OF PROCEDURE, CHEST ULTRASOUND ALREADY DONE, WILL CONTINUE TO MONITOR.
[2018-12-15] MEDS: LISINOPRIL 10 MG TAB PO SCH (10:53)
[2018-12-15] MEDS: VENLAFAXINE HCL 37.5MG TABLET PO SCH ×2 (10:54→22:28)
[2018-12-15] MEDS: QUEtiapine FUMARATE 25 MG TAB PO SCH ×2 (10:55→22:28)
--- NOTE | 2018-12-15 10:55 | NUR ---
RADIOLOGY NURSE REPORTS THEY HAD PATIENT SIGN CONSENT, AND ARE GOING TO DO PROCEDURE SOON. CALLED AND NOTIFIED PT , AWARE AND REPORTS SHE IS ON HER WAY, WILL CONTINUE TO MONITOR.
--- NOTE | 2018-12-15 11:21 | NUR ---
PT REQUESTS NICOTINE PATCH FOR PATIENT AND AIR MATRES, WILL ASK CHARGE FOR AIR MATRES. CALLED DR CASILLAS TO REQUEST NICOTINE PATCH. ALSO NOTIFIED OF WOUND CULTURE RESULTS AND ASKED TO DC ESTEBAN PER PHARMACY. LEFT MESSAGE, AWAITING CALL BACK.
--- NOTE | 2018-12-15 11:30 | NUR ---
CALLED CHARGE NURSE, SHE REPORTS TO PUT IN WOUND CONSULT FOR AIR MATRES. CONSULT PUT IN.
--- NOTE | 2018-12-15 12:38 | NUR ---
RADIOLOGY JUST FINISHING THORACENTESIS. RADIOLOGY NURSE REPORTS THEY REMOVED 800 CC OF FLUID. POST THORACENTESIS VITALS ARE: BP 104/60, HR 106, 02 98, RR 20. WILL CONTINUE TO MONITOR.
--- NOTE | 2018-12-15 12:40 | NUR ---
Right thoracentesis done at bedside with baseline vs 92/31-107-99% SAO2. O2 on at 2L per NC. Thoracentesis needle inserted per after local anesthetic injected. 800ml straw colored liquid obtained and sent to lab. 1225 vs 93/52-107-97% SAP2. 1230 vs 78/44-108-98% SAO2 - procedure terminated as flow had also stopped simultaneously. Catheter removed, Vaseline gauze applied to site et covered with Tegaderm without bleeding noted. Placed patient in supine position. vs recheck 104/60-107-98%SAO2. at bedside - informed of above. Reported events to patient's nurse Al[facility].
--- NOTE | 2018-12-15 12:41 | NUR ---
DR CASILLAS SAW PATIENT, MD REPORTS HE WILL ODER NICOTINE PATCH. MD REPORTS HE WILL LOOK AT WOUND CULTURE AND PHARMACY NOTE ON ROCEPHIN.
[2018-12-15] MEDS ORDERED: VANCOMYCIN 1GM/250ML 250 ML IV ONE (12:45)
[2018-12-15] MEDS ORDERED: NICOTINE 7MG/24HR TOPICAL PATCH TD ONE (12:45)
[2018-12-15 13:00] VITALS: BP 117/67
--- NOTE | 2018-12-15 14:55 | NUR ---
Nutrition Consult/Assessment Notes please see attached link for complete assessment Est. Needs BW 106 k- 2650 kcal (23-25 kcal/kg), 106-116 g protein (1.0-1.1 g/kg r/t wounds). Will continue to monitor pertinent labs and reassess nutrient need prn. Addendum: 12/15/18 at [address] Amended: Links added.
[2018-12-15 17:00] VITALS: BP 99/45
[2018-12-15] MEDS: LEVOFLOXACIN 750MG 150 ML IV SCH (19:59)
[2018-12-15 21:47] VITALS: BP 109/60
--- NOTE | 2018-12-15 22:40 | NUR ---
OPTIFOAM PLACED: Optifoam placed on patients sacrum due to blanchable redness. No s/s of distress noted. Patient tolerated well.
--- NOTE | 2018-12-15 23:09 | NUR ---
Opening Shift Note Assumed care of patient, awake and alert. No S/S of distress/SOB noted. Instructed on POC and to call for assist PRN. Bed is in lowest locked position with bed rails up x2 and call light is within reach of the patient. Addendum: 12/16/18 at 0022 by Luz Maria Cornell RN RN Wrong time: 1938 Dressing to right back is dry and intact
[2018-12-16] MEDS: ALBUTEROL SULF 2.5 MG/0.5ML(0.5%) NEB SOLN NEB SCH ×3 (00:36→11:29)
[2018-12-16] MEDS: IPRATROPIUM BROM 0.5 MG/2.5ML INH SOL NEB SCH ×3 (00:36→11:29)
[2018-12-16 05:04] VITALS: BP 104/57
--- NOTE | 2018-12-16 05:44 | NUR ---
WOUND CARE: WOUND CARE DONE ORDERED. PATIENT TOLERATED WELL. NO S/S OF DISTRESS SOB NOTED.
[2018-12-16] MEDS: HYDROcodone-ACET 5/325MG TAB PO PRN ×2 (06:08→10:08)
[2018-12-16] MEDS: ACCU-CHEK COMFORT CURVE STRIP VI SCH ×2 (06:09→11:33)
[2018-12-16] MEDS: InsuLIN REG 1unit/0.01ml Soln (100units/ml) SC SCH ×2 (06:11→11:30)
[2018-12-16 06:31] LABS: Basophils # (auto) 0 uL; Basophils % (auto) 0.4 % (0.0-2.0); Eosinophils # (auto) 0.1 uL; Eosinophils % (auto) 1.2 % (0.0-7.0); Hematocrit 33.9 % (41.0-53.0); Hemoglobin 11.8 g/dL (13.5-17.5); Lymphocytes # (auto) 0.6 uL; Mean Corpuscular Hemoglobin 35.7 pg (28.0-32.0); Mean Corpuscular Hgb Conc. 34.7 g/dL (32.0-36.0); Monocytes # (auto) 0.5 uL; Monocytes % (auto) 8.8 % (0.0-12.0); Neutrophils # (auto) 4.6 uL; Neutrophils % (auto) 78.6 % (37.0-80.0); Platelet Count (auto) 226 10^3/uL (140-450); Red Blood Cells 3.29 10^6/uL (4.5-5.90); Red Cell Distribution Width 13.1 % (11.8-14.3); White Blood Cell 5.8 10^3/uL (4.4-10.8)
[2018-12-16 06:42] LABS: BUN/Creatinine Ratio 13.9; Calcium 8.8 mg/dL (8.5-10.1); Magnesium 2.4 mg/dL (1.6-2.6); Potassium 3.7 mmol/L (3.5-5.1)
--- NOTE | 2018-12-16 06:42 | NUR ---
[facility] SENT.
[2018-12-16] MEDS: PANTOPRAZOLE 40 MG TAB PO SCH (07:30)
[2018-12-16 09:00] VITALS: BP 107/59
[2018-12-16] MEDS: QUEtiapine FUMARATE 25 MG TAB PO SCH (09:56)
[2018-12-16] MEDS: LISINOPRIL 10 MG TAB PO SCH (09:56)
[2018-12-16] MEDS: VENLAFAXINE HCL 37.5MG TABLET PO SCH (09:56)
[2018-12-16] MEDS ORDERED: NICOTINE 7MG/24HR TOPICAL PATCH TD SCH (10:00)
[2018-12-16] MEDS: guaiFENesin-DM 100/10mg/5ml SYR PO PRN (10:07)
--- NOTE | 2018-12-16 11:18 | NUR ---
RECEIVED REPORT FROM LAB THAT WOUND IS POSITIVE FOR MRSA. DR. CASILLAS AWARE.
[2018-12-16 13:00] VITALS: BP 110/98
[2018-12-16] MEDS ORDERED: VANCOMYCIN PER PHARMACY 1,000 MG IV SCH (14:30)
[2018-12-16] MEDS ORDERED: VANCOMYCIN 1,250 MG in D5W 5% 250 ML IV SCH (15:00)
--- NOTE | 2018-12-16 15:37 | NUR ---
DISCHARGE INSTRUCTIONS GIVEN TO PT AND . ALL APPROPRIATE PAPERWORK SIGNED, VERBALIZED UNDERSTANDING. BAG ON [place] CATHETER CHANGED. PT DISCHARGED HOME.
--- NOTE | 2018-12-16 15:56 | NUR ---
D/C Planning Per consult for home health safety evaluation. Contacted [facility] ph:) Fax: ) faxed medical records. Per Shayy from [facility] pt has been accepted and service to start within 48 hrs upon d/c. Andrew from [employer] advised she will follow up with [facility] for authorization number. Addendum: 12/16/18 at 1600 by JEANA BURDICK Amended: Links added.
--- NOTE | 2018-12-16 16:05 | NUR ---
D/C Planning Per Consult for safety evaluation. Mamta from [facility] ph: ) Fax: ) advised Pt has been with [facility] Ph: ) Fax: ) and for service to resume with them. Contacted [facility] and faxed medical records. Per Viri from [facility] to resume service within 48 hrs upon d/c. Contacted [facility] advised Shayy Pt has been with a different [facility].
== END 2018-12-16 15:00 | disposition home health service (06) | DRG 180 ==
LOC: EDBD 19:09 → ER 19:12 → TELE 19:13 → TELE-WESTW 12-14 09:58
PROVIDERS: ADMIT Nurse Practitioner Family; ATTEND Internal Medicine Geriatric Medicine
PROC: 0W993ZZ Drainage of Right Pleural Cavity, Percutaneous Approach (ICD-10-PCS; principal; 2018-12-15)
DX: C34.91 Malignant neoplasm of unspecified part of right bronchus or lung (principal); E43 Unspecified severe protein-calorie malnutrition; J18.1 Lobar pneumonia, unspecified organism; N39.0 Urinary tract infection, site not specified; J98.11 Atelectasis; L97.429 Non-pressure chronic ulcer of left heel and midfoot with unspecified severity; J91.8 Pleural effusion in other conditions classified elsewhere; I10 Essential (primary) hypertension; E11.9 Type 2 diabetes mellitus without complications; B95.62 Methicillin resistant Staphylococcus aureus infection as the cause of diseases classified elsewhere; F17.210 Nicotine dependence, cigarettes, uncomplicated; I25.10 Atherosclerotic heart disease of native coronary artery without angina pectoris; L97.529 Non-pressure chronic ulcer of other part of left foot with unspecified severity; Z79.899 Other long term (current) drug therapy; Z79.4 Long term (current) use of insulin; Z89.512 Acquired absence of left leg below knee; Z87.01 Personal history of pneumonia (recurrent); Z92.21 Personal history of antineoplastic chemotherapy; Z85.118 Personal history of other malignant neoplasm of bronchus and lung
CPT/HCPCS: 10022; 32555; 36415; 71045; 71250; 76604; 76942; 80048; 80053; 81001; 82962; 83605; 83735; 83880; 84484; 85025; 85610; 85730; 87040; 87070; 87077; 87081; 87186; 87205; 89051; 93005; 94640; 96365; 96366; 96367; G0378; J0696; J1815; J1956; J7060